=== PATIENT | female | born 1945 | race Caucasian/White ===

== ENCOUNTER 2019-03-25 12:34 | Emergency (ER) | payer MEDICARE, OTHER ==
[~2019-03-25] VITALS: Ht 170.2 cm; Wt 51.8 kg
[~2019-03-25 12:34] MED LIST: AMOXICILLIN500 M2 PO
[2019-03-25 13:45] LABS: HEMATOCRIT 39.1 % (37.0-47.0); HEMOGLOBIN 12.6 g/dl (12.0-16.0); IMMATURE GRANULOCYTES 0.4 % (0.0-5.0); MEAN CELL VOLUME 87.9 fL CALC (80.0-100.0); MEAN CORPUSCULAR HGB 28.3 pG CALC (26.0-32.0); MEAN CORPUSCULAR HGB CONC 32.2 g/L CALC (32.0-36.0); NEUT# 5.98 thou/uL (2.00-7.15); RED BLOOD COUNT 4.45 mill/uL (4.20-5.60); RED CELL DISTRI WIDTH 12.9 % (11.5-15.5)
[2019-03-25 13:52] LABS: ALKALINE PHOSPHATASE 60 u/l (38-126); ANION GAP 15 (6-22 (CALC)); BUN 14 mg/dL (8-23); BUN/CREATININE RATIO 14 (12-20 (CALC)); CARBON DIOXIDE 24 mmol/l (22-30); CHLORIDE 104 mmol/l (95-108); GFR 55 ML/MIN (>=60 (CALC)); GFR FOR AFR.AMER. > 60 ML/MIN (>=60 (CALC)); POTASSIUM 4.3 mmol/l (3.5-5.1); SGOT/AST 29 u/l (9-36); SODIUM 138 mmol/l (137-146); TOTAL PROTEIN 7.5 g/dL (6.3-8.2)
[2019-03-25] MEDS ORDERED: ATORVASTATIN CA80 MG PO (14:07)
[2019-03-25] MEDS ORDERED: LEVOTHYROXIN50 MC1 PO (14:07)
[2019-03-25] MEDS ORDERED: CLONAZEPAM0.5 M1 PO (14:07)
[2019-03-25] MEDS ORDERED: SERTRALINE100 MG PO (14:08)
[2019-03-25] MEDS ORDERED: ADVAIR DISK1 IN (14:08)
[2019-03-25] MEDS ORDERED: VOLTAREN1%GEL TOP (14:09)
[2019-03-25] MEDS ORDERED: PROLIA60 MG/ML SC (14:09)
[2019-03-25] MEDS ORDERED: ZPAK PO ×2 (14:38→15:16)
[2019-03-25] MEDS ORDERED: PREDNISONE50 MG PO ×2 (14:38→15:16)
[2019-03-25 14:50] VITALS: BP 103/56
== END 2019-03-25 14:50 | disposition home or self-care (01) ==
LOC: ED 12:34
PROVIDERS: Family Medicine
DX: J44.9 Chronic obstructive pulmonary disease, unspecified (principal); R06.02 Shortness of breath

== ENCOUNTER 2019-11-21 22:04 | Emergency (ER) | payer MEDICARE, OTHER ==
[~2019-11-21] VITALS: Ht 160 cm; Wt 48.2 kg
[~2019-11-21 22:04] MED LIST changes: +ADVAIR DISK1 IN; +ATORVASTATIN CA80 MG PO; +CLONAZEPAM0.5 M1 PO; +LEVOTHYROXIN50 MC1 PO; +PREDNISONE50 MG PO; +PROLIA60 MG/ML SC; +SERTRALINE100 MG PO; +VOLTAREN1%GEL TOP; +ZPAK PO
[2019-11-21] MEDS ORDERED: DOXYCYCL HYC100 MG PO (22:39)
[2019-11-21 23:45] VITALS: BP 105/59
== END 2019-11-21 23:45 | disposition home or self-care (01) ==
LOC: ED 22:04
DX: S71.152A Open bite, left thigh, initial encounter (principal); J44.9 Chronic obstructive pulmonary disease, unspecified; W55.01XA Bitten by cat, initial encounter; Y93.89 Activity, other specified; Y92.007 Garden or yard of unspecified non-institutional (private) residence as the place of occurrence of the external cause

== ENCOUNTER 2020-10-17 15:01 | Emergency (ER) | payer OTHER, MEDICARE ==
[~2020-10-17] VITALS: Ht 160 cm; Wt 52.0 kg
[~2020-10-17 15:01] MED LIST changes: +DOXYCYCL HYC100 MG PO
[2020-10-17 15:51] LABS: HEMATOCRIT 39.9 % (37.0-47.0); HEMOGLOBIN 12.6 g/dl (12.0-16.0); IMMATURE GRANULOCYTES 0.8 % (0.0-5.0); MEAN CORPUSCULAR HGB 27.2 pG CALC (26.0-32.0); MEAN CORPUSCULAR HGB CONC 31.6 g/dL CAL (32.0-36.0); NEUT# 7.05 thou/uL (2.00-7.15); RED BLOOD COUNT 4.64 mill/uL (4.20-5.60); RED CELL DISTRI WIDTH 13.5 % (11.5-15.5)
[2020-10-17 16:02] LABS: ALBUMIN 4.1 g/dL (3.2-5.0); ALKALINE PHOSPHATASE 72 u/l (38-126); ANION GAP 13 (6-22 (CALC)); BILIRUBIN, TOTAL 0.9 mg/dL (0.0-1.4); BUN 9 mg/dL (8-23); BUN/CREATININE RATIO 9 (12-20 (CALC)); CARBON DIOXIDE 25 mmol/l (22-30); CHLORIDE 102 mmol/l (95-108); CREATININE 0.9 mg/dL (0.5-1.0); GFR > 60 ML/MIN (>=60 (CALC)); GFR FOR AFR.AMER. > 60 ML/MIN (>=60 (CALC)); POTASSIUM 4.3 mmol/l (3.5-5.1); SGOT/AST 25 u/l (9-36); SODIUM 136 mmol/l (137-146); TOTAL PROTEIN 7.4 g/dL (6.3-8.2)
[2020-10-17 16:26] VITALS: BP 130/71
== END 2020-10-17 16:46 | disposition home or self-care (01) | DRG 556 ==
LOC: ED 15:01
PROVIDERS: Family Medicine
DX: M25.512 Pain in left shoulder (principal); J44.9 Chronic obstructive pulmonary disease, unspecified; V59.40XA Driver of pick-up truck or van injured in collision with unspecified motor vehicles in traffic accident, initial encounter

== ENCOUNTER 2021-01-19 16:02 | Emergency (ER) | payer MEDICARE, OTHER ==
[~2021-01-19] VITALS: Ht 160 cm; Wt 53.0 kg
[2021-01-19 17:40] VITALS: BP 146/62
== END 2021-01-19 17:40 | disposition home or self-care (01) ==
LOC: ED 16:02
PROC: 0HQKXZZ Repair Right Lower Leg Skin, External Approach (ICD-10-PCS; principal; 2021-01-19)
DX: S81.811A Laceration without foreign body, right lower leg, initial encounter (principal); M79.5 Residual foreign body in soft tissue; J44.9 Chronic obstructive pulmonary disease, unspecified; W22.09XA Striking against other stationary object, initial encounter; Y92.009 Unspecified place in unspecified non-institutional (private) residence as the place of occurrence of the external cause

== ENCOUNTER 2021-01-28 13:03 | Emergency (ER) | payer MEDICARE, OTHER ==
[~2021-01-28] VITALS: Ht 160 cm; Wt 56.0 kg
[2021-01-28 13:43] VITALS: BP 120/86
== END 2021-01-28 13:51 | disposition home or self-care (01) ==
LOC: ED 13:03
DX: S81.811D Laceration without foreign body, right lower leg, subsequent encounter (principal); X58.XXXD Exposure to other specified factors, subsequent encounter; J44.9 Chronic obstructive pulmonary disease, unspecified

== ENCOUNTER 2024-02-23 12:15 | Emergency (ER) | payer MEDICARE, OTHER ==
[2024-02-23] VITALS (10 sets, daily range): BP systolic 98–129; BP diastolic 61–81
[~2024-02-23] VITALS: Ht 157.5 cm; Wt 40.8 kg
[2024-02-23] MEDS ORDERED: ISOVUE-300 (Iopamidol) 100 ML SDV IV ONE ×2 (12:45→13:00)
[2024-02-23 12:57] LABS: BASO% 0.8 % (0-3); EOS% 1.6 % (0-8); HEMATOCRIT 37.4 % (37.0-47.0); HEMOGLOBIN 11.4 g/dl (12.0-16.0); IMMATURE GRANULOCYTES 0.2 % (0.0-5.0); LYMPH% 9.7 % (15-41); MEAN CELL VOLUME 84.2 fL CALC (80.0-100.0); MEAN CORPUSCULAR HGB 25.7 pG CALC (26.0-32.0); MEAN CORPUSCULAR HGB CONC 30.5 g/dL CAL (32.0-36.0); MONO% 5.5 % (2-13); NEUT# 10.78 thou/uL (2.00-7.15); NEUT% 82.2 % (42-76); RED BLOOD COUNT 4.44 mill/uL (4.20-5.60); RED CELL DISTRI WIDTH 13.5 % (11.5-15.5)
[2024-02-23 13:20] LABS: ALBUMIN 4.5 g/dL (3.2-5.0); ALKALINE PHOSPHATASE 66 u/l (38-126); ANION GAP 16 (6-22 (CALC)); BILIRUBIN, TOTAL 0.7 mg/dL (0.02-1.3); BUN 29 mg/dL (8-23); BUN/CREATININE RATIO 20 (12-20 (CALC)); CARBON DIOXIDE 25 mmol/l (22-30); CHLORIDE 102 mmol/l (95-108); CREATININE 1.4 mg/dL (0.5-1.0); ESTIMATED GFR 39 ML/MIN (>=90 (CALC)); MAGNESIUM 2.3 mg/dL (1.6-2.3); SGOT/AST 26 u/l (9-36); SODIUM 140 mmol/l (137-146); TOTAL PROTEIN 8.5 g/dL (6.3-8.2)
[2024-02-23] MEDS ORDERED: SODIUM CHLORIDE 0.9% 1,000 ML IV ONE (14:15)
[2024-02-23 15:14] LABS: URINE BILIRUBIN - DIPSTICK Negative (NEGATIVE); URINE BLOOD DIPSTICK Trace-intact (NEGATIVE); URINE GLUCOSE - DIPSTICK Negative (NEGATIVE); URINE KETONE Negative (NEGATIVE); URINE LEUK ESTERASE Trace (NEGATIVE); URINE NITRITE - DIPSTICK Negative (Negative); URINE PROTEIN - DIPSTICK Negative (NEG-TRACE); URINE SPECIFIC GRAVITY 1.015; URINE UROBILINOGEN - DIPSTICK 0.2 E.U./dL (0.2)
[2024-02-23 15:15] LABS: URINE COLOR Yellow
[2024-02-23] MEDS ORDERED: ZPAK PO (16:42)
== END 2024-02-23 17:03 | disposition home or self-care (01) ==
LOC: ED 12:15
PROVIDERS: Nurse Practitioner
DX: R91.8 Other nonspecific abnormal finding of lung field (principal); J44.9 Chronic obstructive pulmonary disease, unspecified; R64 Cachexia
CPT/HCPCS: Q9967